=== PATIENT | male | born 1975 | race Caucasian/White ===

== ENCOUNTER 2018-02-27 14:11 | Emergency (ER) | payer OTHER ==
[~2018-02-27] VITALS: Ht 190.5 cm; Wt 117.0 kg
[2018-02-27] MEDS ORDERED: NORCO 5-325 TA1 EAC1 PO (16:07)
[2018-02-27] MEDS ORDERED: NORFLEX100 MG PO (16:07)
[2018-02-27] MEDS ORDERED: PREDNISONE 10 M10 M1 PO (16:07)
[2018-02-27] MEDS ORDERED: ATENOLOL 25MG T25 M1 PO (16:10)
[2018-02-27 16:30] VITALS: BP 168/94
== END 2018-02-27 16:32 | disposition home or self-care (01) ==
LOC: M.ERS 14:11
DX: S40.011A Contusion of right shoulder, initial encounter (principal); I10 Essential (primary) hypertension; Z88.0 Allergy status to penicillin; W22.8XXA Striking against or struck by other objects, initial encounter; Y93.89 Activity, other specified; Y92.89 Other specified places as the place of occurrence of the external cause; Y99.8 Other external cause status